=== PATIENT | male | born 1980 | race Caucasian/White ===

== ENCOUNTER 2018-06-28 06:06 | Emergency (ER) | payer BC ==
[2018-06-28] MEDS ORDERED: Lorazepam 2 MG/ML VIAL ONE ×2 (06:18→07:23)
[2018-06-28 06:51] LABS: #Eosinphils 0.2 thou/uL (0.0-0.7); #Lymphocytes 1.7 thou/uL (1.20-3.40); #Monocytes 0.5 thou/uL (0.11-0.59); #Neutrophils 6.2 thou/uL (1.40-6.50); %Basophils 0.5 % (0.0-1.0); %Eosinophils 2.4 % (0.0-10.0); %Lymphocytes 19.6 % (21.0-51.0); %Monocytes 5.4 % (0.0-10.0); %Neutrophils 72.1 % (42.0-75.0); Hemoglobin 16.7 g/dL (14.0-18.0); Mean Corpuscular HGB CONC 33.5 g/dL (32.0-36.0); Mean Corpuscular Hemoglobin 31.3 pg (27.0-31.0); Mean Corpuscular Volume 93.2 fL (78.0-98.0); Mean Platelet Volume 8.6 fL (7.4-10.4); Platelet Count 226 thou/uL (130-400); RBC Distribution Width 11.6 % (11.5-14.5); Red Blood Cell (RBC) Count 5.35 mill/uL (4.70-6.10); White Blood Cell (WBC) Count 8.6 thou/uL (4.8-10.8)
[2018-06-28 07:07] LABS: ALT (SGPT) 35 U/L (8-55); AST (SGOT) 27 U/L (5-34); Albumin 4.5 g/dL (3.5-5.0); Alkaline Phosphatase 83 U/L (40-150); Anion Gap 18 mmol/L (10-20); BUN (Urea Nitrogen) 14 mg/dL (8.9-20.6); Bilirubin, Total 1.4 mg/dL (0.2-1.2); Calc. Creatinine Clearance 0 mL/min (70-130); Calcium 9.2 mg/dL (7.8-10.44); Carbon Dioxide 17 mmol/L (22-29); Chloride 105 mmol/L (98-107); Estimated GFR-MDRD 74; Globulin 2.7 g/dL (2.4-3.5); Glucose 137 mg/dL (70-105); Lipase 39 U/L (8-78); Potassium 3.4 mmol/L (3.5-5.1); Protein, Total 7.2 g/dL (6.0-8.3); Sodium 137 mmol/L (136-145)
--- NOTE | 2018-06-28 08:11 | RAD ---
RADIOGRAPH CHEST 1 VIEW: HISTORY: A 37-year-old male with chest pain. FINDINGS: There are no air space densities, pulmonary edema, pneumothorax, or cardiomegaly. The lateral costop hrenic angles are sharp. IMPRESSION: No acute cardiopulmonary findings. jn [] POS: [facility]
[2018-06-28] MEDS ORDERED: ISOVUE-370 76%-LOCM 1 ML ONE (13:20)
--- NOTE | 2018-06-28 15:30 | CT ---
PRELIMINARY REPORT/[facility]/EMERGENTY AFTER-HOURS PROCEDURE CT Angiography Chest With Contrast EXAM DATE/TIME: 06/28/2018 6:58 AM CLINICAL HISTORY: 37 years old, male; Pain; Chest pain; Patient HX: Patient is a 37 year old male who presents to ed C/ O cp onset 30 minutes prior to arrival. Patient presents to triage [facility] without a shirt, covered in sweat, and C/O anxiety. Patient reportedly was having an argument with his . Surgical history of appendectomy TECHNIQUE: Axial computed tomographic angiography images of the chest with intravenous contrast using CT angiogr aphy protocol. Coronal and sagittal reformatted images were created and reviewed. MIP reconstructed i mages were created and reviewed. COMPARISON: No relevant prior studies available. FINDINGS: Pulmonary arteries: There is no evidence of peripheral filling defects within the pulmonary arterial circulation to suggest pulmonary embolism. Aorta: The aorta is normal. There is no evidence of aortic dissection, leak, rupture, or other compli cations. Thyroid: The visualized thyroid gland is unremarkable. Lungs: Normal. No consolidation. No masses. Pleural space: Normal. No pneumothorax. No pleural effusion. Heart: Normal. No cardiomegaly. No pericardial effusion. Mediastinum: The trachea is normal. Lymph nodes: Unremarkable. No enlarged lymph nodes. Bones/joints: Unremarkable. No acute fracture. Soft tissues: Unremarkable. IMPRESSION: 1. There is no CT evidence of acute pulmonary embolism. 2. There is no evidence of aortic dissection, leak, rupture, or other complications. CT Angiography Abdomen With Contrast EXAM DATE/TIME: 06/28/2018 6:58 AM TECHNIQUE: Axial computed tomographic angiography images of the abdomen with intravenous contrast material, incl uding non-contrast images if performed. MIP and/or 3D reconstructed images were created and reviewed. Coronal and sagittal reformatted images were created and reviewed. COMPARISON: No relevant prior studies available. FINDINGS: Lungs: Unremarkable. No consolidation. VASCULATURE: Aorta: The aorta is normal. There is no evidence of aortic dissection, leak, rupture, or other compli cations. Celiac trunk and mesenteric arteries: No occlusion or significant stenosis. Renal arteries: No occlusion or significant stenosis. ABDOMEN: Liver: There are no focal liver lesions identified. Gallbladder and bile ducts: The gallbladder is normal. There is no evidence of biliary ductal dilatio n. Pancreas: The pancreas appears normal. No ductal dilatation. Spleen: The spleen is normal. Adrenals: The adrenal glands are normal. Kidneys and ureters: The kidneys appear normal. No hydronephrosis. Stomach and bowel: The stomach is normal. The duodenum is unremarkable. Intraperitoneal space: Unremarkable. No free air. No significant fluid collection. Bones/joints: Unremarkable. No acute fracture. No dislocation. Soft tissues: Unremarkable. Lymph nodes: Unremarkable. No enlarged lymph nodes. IMPRESSION: There is no evidence of aortic dissection, leak, rupture, or other complications. Thank you for allowing us to participate in the care of your patient. Dictated and Authenticated by: Romeo Card MD 06/28/2018 7:14 AM Central Time ([place] & [place]) FINAL REPORT CTA CHEST WITH IV CONTRAST AND 3D POSTPROCESSING CTA ABDOMEN WITH IV CONTRAST AND 3D POSTPROCESSING: I agree with the preliminary report given by Dr. Romeo Card of [facility]. POS: [facility]
== END 2018-06-28 08:15 | disposition home or self-care (01) ==
LOC: ERS 06:06
DX: F43.20 Adjustment disorder, unspecified (principal); F41.9 Anxiety disorder, unspecified; F32.9 Major depressive disorder, single episode, unspecified; I10 Essential (primary) hypertension; F17.200 Nicotine dependence, unspecified, uncomplicated; Z79.899 Other long term (current) drug therapy
CPT/HCPCS: 71045; 71275; 80053; 83690; 84484; 85025; 85379; 93005; 94760; 96361; 96374; J2060; Q9966